=== PATIENT | female | born 1980 | race American Indian/Alaskan Native ===

== ENCOUNTER 2020-07-31 12:22 | Outpatient (CLI) | payer OTHER ==
--- NOTE | 2020-07-31 15:07 | XRay Report ---
LEFT KNEE 3 VIEWS INDICATION: LEFT KNEE PAIN. COMPARISON: No relevant prior imaging study available. FINDINGS: No acute skeletal abnormality. No joint effusion. No significant degenerative changes. IMPRESSION: 1. No acute findings. Signer Name: Myron Ramírez MD Signed: 07/31/2020 3:03 PM Workstation Name: [id number]
== END 2020-07-31 12:23 | disposition home or self-care (01) ==
LOC: SPVIMAG 12:22
PROVIDERS: ATTEND Urology
DX: M25.562 Pain in left knee (principal)